=== PATIENT | female | born 1955 | race Caucasian/White ===

== ENCOUNTER 2018-04-04 20:56 | Emergency (ER) | payer BC, SELFPAY ==
[2018-04-04 20:59] VITALS: BP 185/84; PULSE 88; RESP 20; TEMP 36.6; O2SAT 96; BMI 37.4
--- NOTE | 2018-04-04 21:14 | PC.NURSE ---
Assisted BEN Piña with rectal exam. Large external hemorrhoid noted with swelling and redness.
--- NOTE | 2018-04-04 21:30 | ED_ITS ---
HPI - Skin/Abscess/Foreign Bdy <ILDA Loaiza - Last Filed: 04/04/18 21:33> General Chief complaint: Skin/Abscess/Foreign Body Stated complaint: RECTAL ABCESS Time Seen by Provider: 04/04/18 20:57 Source: patient Mode of arrival: ambulatory Limitations: no limitations History of Present Illness HPI narrative: 62-year-old female with history of type 2 diabetes nonsmoker here for complaint of having pain into her anal area for the past couple of weeks. She states she has had constipation on and off over the past couple weeks. Her doctor has seen her for the same thing and has had her try to increase fiber in her diet to see if it helps her symptoms. She reports increased pain with palpation to the area. She denies any trauma to the area. She denies any bleeding. No other concerns or complaints. Related Data Previous Rx's Medication Instructions Recorded benzocaine See Label Instructions .ROUTE 04/04/18 .COMPLEX PRN #30 gram polyethylene glycol 3350 [Miralax] 17 gram PO DAILY #14 each 04/04/18 Review of Systems <ILDA Loiaza - Last Filed: 04/04/18 21:33> Constitutional Denies chills, Denies fever(s), Denies lethargy and Denies weakness Eyes Denies change in vision, Denies eye discharge, Denies irritation and Denies loss of vision ENT Ears, Nose, Mouth, and Throat: Denies change in voice, Denies neck pain and Denies sore throat Cardiovascular Denies chest pain, Denies irregular heart rhythm, Denies lightheadedness, Denies palpitations, Denies dyspnea, Denies dyspnea on exertion and Denies orthopnea Respiratory Denies cough, Denies dyspnea, Denies dyspnea on exertion and Denies wheezing Gastrointestinal Gastrointestinal: Denies abdominal pain, Denies change in bowel habits, Denies diarrhea, Denies nausea and Denies vomiting Genitourinary Comments: Anal discomfort Musculoskeletal Denies neck pain Integumentary/Breasts Denies pruritus, Denies erythema, Denies rash and Denies wounds Neurologic Denies confusion, Denies loss of vision and Denies weakness Psychiatric Denies anxiety, Denies confusion, Denies depression, Denies homicidal ideation and Denies suicidal ideation Endocrine Denies palpitations Allergic/Immunologic Denies wheezing Exam <ILDA Loaiza - Last Filed: 04/04/18 21:33> Initial Vital Signs Initial Vital Signs: Vital Signs Temperature 97.9 F 04/04/18 20:59 Pulse Rate 88 04/04/18 20:59 Respiratory Rate 20 04/04/18 20:59 Blood Pressure 185/84 H 04/04/18 20:59 Pulse Oximetry 96 04/04/18 20:59 Const General: cooperative and well developed Nutritional Appearance: well nourished Orientation: alert, awake, oriented x3 and not confused HENMT Mouth: oral mucosae normal, oropharynx normal and moist mucous membranes Eyes Conjunctivae: conjunctivae normal Sclera: sclerae normal Pupils: PERRL EOM: EOM intact bilaterally Resp Effort & Inspection: normal respiratory effort, able to speak in complete sentences, no respiratory distress and no use of accessory muscles Auscultation: clear to auscultation bilaterally, no rales, no rhonchi and no wheezes Cardio Rate: regular rate Rhythm: regular rhythm Heart Sounds: no click, no gallops, no murmurs and no rubs GI Inspection: non-distended Palpation: soft, no hepatosplenomegaly, No guarding, No pulsatile mass and No tender Auscultation: normal bowel sounds Rectal Exam: normal sphincter tone and hemorrhoids (External hemorrhoid to 6:00 position non thrombosed) Skin General: no rashes or lesions noted, No jaundice and No petechiae Neuro General: alert, oriented x3, gait normal and no focal motor deficits Speech: speech normal <Az Garcia MD - Last Filed: 04/04/18 22:23> Initial Vital Signs Initial Vital Signs: Vital Signs Temperature 97.9 F 04/04/18 20:59 Pulse Rate 88 04/04/18 20:59 Respiratory Rate 20 04/04/18 20:59 Blood Pressure 185/84 H 04/04/18 20:59 Pulse Oximetry 96 04/04/18 20:59 Course <ILDA Loaiza - Last Filed: 04/04/18 21:33> Vital Signs - 8 hr 04/04/18 20:59 04/04/18 21:31 Temperature 97.9 F Pulse Rate 88 81 Respiratory Rate 20 18 Blood Pressure 185/84 H Blood Pressure [Right Arm] 135/84 Pulse Oximetry 96 100 <Az Garcia MD - Last Filed: 04/04/18 22:23> Vital Signs - 8 hr 04/04/18 20:59 04/04/18 21:31 Temperature 97.9 F Pulse Rate 88 81 Respiratory Rate 20 18 Blood Pressure 185/84 H Blood Pressure [Right Arm] 135/84 Pulse Oximetry 96 100 MDM - Skin/Abscess/Foreign Bdy <Wang LunaILDA - Last Filed: 04/04/18 21:33> [facility] Narrative Medical decision making narrative: She has an external hemorrhoid that is causing her discomfort. No abscess is appreciated. She is prescribed benzocaine ointment to help with discomfort. She is instructed to use beaudreauxs butt paste to help with estringment and protective properties. Sitz bath to help with symptoms as well. She is prescribed MiraLax to help see if it softens her stools. Plenty of fluids. Follow up with primary care provider in the next week. For any the worsening symptoms return to the emergency room. Discharge Plan Departure Patient Disposition: Home Clinical Impression: Hemorrhoid Discharge Date/Time: 04/04/18 21:38 Interventions: ED Discharge Assessment Last Done: 04/04/18 21:38 Instructions: DI for Hemorrhoids Activity Restrictions/Additional Instructions: Signs and symptoms presents as an external hemorrhoid that is causing the discomfort. You have been prescribed MiraLax to help soften her stools use as directed. Plenty of fluids. Sitz bath to help with symptoms a few times a day over the next several days. You have been prescribed benzocaine ointment to help with discomfort use as directed. Also use beaudreaux's butt paste over-the -counter zinc oxide for a astringent and protective properties as directed under instructed. Gmiv-qto-reddlpt Tylenol or Motrin as needed for any discomfort. Follow up with her primary care provider this week. Return emergency room for any worsening symptoms. Prescriptions: New benzocaine 10 % ointment See Label Instructions .ROUTE .COMPLEX PRN (Reason: hemorrhoids) Qty: 30 RF : 0 polyethylene glycol 3350 [Miralax] 17 gram powder in packet 17 gram PO DAILY Qty: 14 RF: 0 Referrals: Az Eastman MD [Primary Care Provider] -
[2018-04-04 21:31] VITALS: BP 135/84; PULSE 81; RESP 18; O2SAT 100
== END 2018-04-04 21:38 | disposition home or self-care (01) ==
PROVIDERS: Emergency Provider Nurse Practitioner Family; Family Provider Family Medicine; PCP Family Medicine
DX: K64.9 Unspecified hemorrhoids (principal)
CPT/HCPCS: 99282

== ENCOUNTER → 2018-12-24 13:43 | Outpatient (CLI) | payer BC, SELFPAY | PROVIDERS: PCP Family Medicine; Visit Provider Family Medicine | DX: R20.2 Paresthesia of skin (principal) | CPT/HCPCS: 95885; 95886; 95911 ==

== ENCOUNTER → 2020-05-01 16:28 | Outpatient (CLI) | payer BC, SELFPAY ==
--- NOTE | 2020-05-01 | DI.RAD.S_ITS ---
PROCEDURE: XR CHEST 2V INDICATIONS: PRURITIS TECHNIQUE: 2 views of the chest were acquired. COMPARISON: None. FINDINGS: Surgical changes and devices: Right upper quadrant cholecystectomy clips are present. Lungs and pleura: Lungs are clear. No pleural effusions or pneumothorax. Mediastinum: Mediastinal contours are normal. Heart size is normal. Bones and chest wall: No suspicious bony abnormalities. Soft tissues appear unremarkable. IMPRESSION: No acute cardiopulmonary abnormality. Dictated by: Dorian Capps M.D. on 05/01/2020 at 17:03 Approved by: Dorian Capps M.D. on 05/01/2020 at 17:15
== END ==
PROVIDERS: PCP Family Medicine; Referring Provider Family Medicine; Visit Provider Family Medicine
DX: L29.9 Pruritus, unspecified (principal)
CPT/HCPCS: 71046

== ENCOUNTER → 2021-07-07 08:12 | Outpatient (CLI) | payer BC, SELFPAY ==
--- NOTE | 2021-07-07 | DI.MG.S_ITS ---
BILATERAL DIGITAL SCREENING MAMMOGRAM 3D/2D WITH CAD: 07/07/2021 CLINICAL: Routine screening. Family history of breast cancer. Comparison is made to exams dated: 05/21/2013 mammogram, 09/18/2016 mammogram, 09/26/2016 mammogram, and 01/03/2012 mammogram - outside facility. The tissue of both breasts is predominantly fatty. Current study was also evaluated with a Computer Aided Detection (CAD) system. No significant masses, calcifications, or other findings are seen in either breast. There has been no significant interval change. IMPRESSION: NEGATIVE There is no mammographic evidence of malignancy. A 1 year screening mammogram is recommended. This exam was interpreted at Station ID: [id number]. NOTE: For mammograms, a report in lay terms will be sent to the patient. Approximately 15% of breast malignancies will not be visualized mammographically. In the management of a palpable breast mass, a negative mammogram must not discourage biopsy of a clinically suspicious lesion. Electronically Signed By: Rodrigo fox/wilbur:07/09/2021 07:31:12 letter sent: Normal Exam ACR BI-RADS Category 1: Negative 3341F
== END ==
PROVIDERS: PCP Family Medicine; Referring Provider Family Medicine; Visit Provider Family Medicine
DX: Z12.31 Encounter for screening mammogram for malignant neoplasm of breast (principal); Z80.3 Family history of malignant neoplasm of breast
CPT/HCPCS: 77063; 77067

== ENCOUNTER → 2021-07-31 13:58 | Outpatient (CLI) | payer BC, SELFPAY ==
--- NOTE | 2021-07-31 16:58 | DIAB.MNT ---
Initial Diabetes Medical Nutrition Therapy Assessment Name: Mable Alberts Date: 07/31/21 Time: 2-330p Dx: Type II Diabetes Provider: Carolyn Eastman Preferred Learning Style: Listening, watching Mable presents for initial visit concerning her DM and weight. States she has had DM for 10 years. Reports recent hgA1c from Endo of 8%, lower than previous labs of 9.6% in 11/2019 per referral. Mable endorses medication rxns with Metformin and Januvia. States Endo plans to try a new medication next visit (end of Jul), but she is unclear which med. Mable reports a number of food allergies. Saw an associate professor of engineering and completed bloodwork indicating some elevated IgE levels for avocado, corn, latex, wheat, and eggs. Never had f/u appt. States she went to associate professor of [employer] due to a severe rash that would not heal. Rash has since healed, prior to cutting these foods out of her diet. Despite this, she has decided to avoid corn and wheat. Other foods she avoids: chicken, beef due to preference and soy due to allergy. Also endorses arthritis and is avoiding wheat and considering nightshade veggie restriction. Mable has h/o thyroid insufficiencies, arthritis, hair loss, and rashes. Wondering if she is having multiple autoimmune issues. Diet recall indicates very small portions for meals. States she is looking for easy meal ideas. She works long hours as an RN. Temporarily living in a small living space with limited cooking space and capabilities. States she is open to meal prep ideas but historically does not cook. reports high sat fat and sodium convenience foods. Diet Recall: 5a: black coffee 8-9a: yogurt with nuts or HB egg or one toast with butter or PB 12-2p: cheese and crackers or chopped salad or veggie mix with nuts and black beans or frozen egg white bites 6-7p: nuts, cheese, part of apple or polenta with pesto and tomatoes with cheese. Beverages: 80oz water, 12oz sparkling water, 1-2c coffee Anthropometrics: Ht: 68 Wt: 240# reported Weight history: reports recent -10# intentional weight loss Physical Activity: walks 4 days per week with dogs for 60 min. Recently started online yoga. PT for back once per week. Self-Monitoring Blood Glucose: Has checked in the past. Not currently checking. States her fastings were usually in range but some after meal readings in the low 200s. Diabetes Medications: Glipizide 10 mg daily Pertinent Labs: 8% HgA1c reported. Per referral: HgA1c 9.6 (11/2019). Referral indicates h/o HLD in 2019. Past Medical History: (Reported) Eye problems, carpal tunnel sx, excision of melanoma, cholecystectomy, drug and food allergies Nutrition Rx: Carbohydrates: Meal: 30g Snack: 15-30g Nutrition Diagnosis: - Excessive saturated fat intake r/t convenience food options and nutrition related knowledge deficit aeb diet recall - Self monitoring deficit r/t not currently checking SMBG aeb pt report - Nutrition and food related knowledge deficit r/t limited MNT hx aeb pt report Intervention: This participant was very receptive. Provided appropriate educational handouts. Discussed the following topics: Completed intake assessment. Discussed barriers to care. HgA1c, its correlation to blood glucose numbers, and rationale for goal Importance of self-monitoring, how often, and when to check. Suggested checking at different times to evaluate meals Keeping more varied diet possible with food allergies and preferences Plate Method, impact of macronutrients on blood sugar, meal timing, carbohydrate counting, pairing macronutrients Recommended servings for carbohydrates at meals and snacks Heart health nutrition: sat fat and sodium Brainstormed appropriate meal ideas plan based on food preferences Role of physical activity and following guidelines for safety Created SMART goals for patient self-care and success. Goals: bring list of foods from home for more ideas on meal planning Read food labels Start checking Bg 1-2 x per day and log Follow-up: ARCELIA MARTIN follow-up in 2-3 weeks Riana Cano RDN, RAYES Certified Diabetes Care and Division Director P: [phone] Thank you for this referral
== END ==
PROVIDERS: PCP Family Medicine; Referring Provider Family Medicine; Visit Provider Family Medicine
DX: E11.9 Type 2 diabetes mellitus without complications (principal); Z79.84 Long term (current) use of oral hypoglycemic drugs
CPT/HCPCS: 97802

== ENCOUNTER → 2021-09-11 12:57 | Outpatient (CLI) | payer BC, SELFPAY ==
--- NOTE | 2021-09-11 17:43 | DIAB.MNTFU ---
Follow-up Diabetes Medical Nutrition Therapy Assessment Name: Mable Alberts Date: 09/11/21 Time: 110-215p Dx: Type II Diabetes Mable presents for follow-up regarding T2DM. States she has seen her endo last month and her HgA1c was the highest it has ever been at 11%. States she started Jaridiance at 10mg with the impression that her endo would increase dose. This endo has retired. She is unclear if the new endo will titrate her dose up without a visit. Encouraged her to call provider's office to determine plan. Also endorses elevated lipids. FH of HLD with mother and sister. Plans to start statin. Reports trying to make lower carb choices; however even on low carb days she is waking with elevated fastings. Seems she may need more medication coverage, certainly an increase in Jardiance may be beneficial. Certainly increases in physical activity would be beneficial as well. Reports she would like info on what kind of bread to choose. Also interested on easy on hand items to keep that are low in carb. States she does not think she gets much protein, which is evident in her diet recall. Limits chicken and beef as a preference. Does eat fish. States she has an allergy to soy. Would like a list of potential meals and snack ideas. Anthropometrics: Ht: 68 Wt: 240# reported last visit Physical Activity: last visit: walks 4 days per week with dogs for 60 min. Recently started online yoga. PT for back once per week. Self-Monitoring Blood Glucose: All FBG above target. Two other readings also elevated per ADA guidelines. Date Pre Post Pre Post Pre Post HS 08/22 164 08/24 153 08/26 181 189 184 09/03 233 09/08 235 09/09 172 09/10 177 Diabetes Medications: Glipizide 10 mg daily Jardiance 10mg Pertinent Labs: 8% HgA1c reported. Per referral: HgA1c 9.6 (11/2019). Referral indicates h/o HLD in 2019. Past Medical History: (Reported) Eye problems, carpal tunnel sx, excision of melanoma, cholecystectomy, drug and food allergies Nutrition Rx: Carbohydrates: Meal: 30g Snack: 15-30g Nutrition Diagnosis: - Excessive saturated fat intake r/t convenience food options and nutrition related knowledge deficit aeb diet recall- improved - Self monitoring deficit r/t not currently checking SMBG aeb pt report- improved - Nutrition and food related knowledge deficit r/t limited MNT hx aeb pt report- in progress Intervention: This participant was very receptive. Provided appropriate educational handouts. Discussed the following topics: Blood sugar review and trends. Impact of food intake on results. Label reading, meal planning and lists Protein options Heart health nutrition: fats, fiber, and sodium Fiber needs with lower carb diets Eating out and grocery shopping tips Medication action and doses Created SMART goals for patient self-care and success. 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
== END ==
PROVIDERS: PCP Family Medicine; Referring Provider Family Medicine; Visit Provider Family Medicine
DX: E11.9 Type 2 diabetes mellitus without complications (principal); E78.5 Hyperlipidemia, unspecified; Z71.3 Dietary counseling and surveillance; Z79.84 Long term (current) use of oral hypoglycemic drugs
CPT/HCPCS: 97803

== ENCOUNTER → 2021-11-01 10:07 | Outpatient (CLI) | payer BC, SELFPAY ==
[2021-11-01 11:16] LABS: COVID19 -Nasal RAPID Negative (Negative)
== END ==
PROVIDERS: PCP Family Medicine; Visit Provider Family Medicine Sleep Medicine
DX: Z20.822 Contact with and (suspected) exposure to COVID-19 (principal)
CPT/HCPCS: 87635

== ENCOUNTER → 2021-11-01 12:08 | Outpatient (CLI) | payer BC, SELFPAY ==
--- NOTE | 2021-11-02 12:03 | PM.TREADMILL ---
Cardiac Stress Test Report Referral & Results Date Patient Seen: 11/02/21 Time Patient Seen: 12:03 Requesting provider: Az Eastman Indication: Chest pain Rest ECG: Sinus rhythm Procedure Note: Standard Pastor protocol, 5:31, 7.0 METS Reduced exercise capacity, LORENZO +13% Normal hemodynamic response to exercise No chest pain or anginal symptoms No significant ST changes at peak exercise Rare PVC Impression: Normal exercise stress test Please note: Actual ECG tracings can be found in the PACS system.
--- NOTE | 2021-11-02 18:03 | DI.NM.S_ITS ---
DATE OF SERVICE: 11/01/2021 PROCEDURE PERFORMED: Exercise treadmill stress and rest myocardial perfusion imaging with gating to assess ejection fraction and regional wall motion. ORDERING PROVIDER: Dr. Az Eastman. INDICATIONS: The patient is a 65-year-old obese female with atypical chest discomfort. EXERCISE TREADMILL TESTING: The patient was able to exercise for 5 minutes, 32 seconds on a standard Pastor protocol suggesting mild to moderately reduced exercise capacity with an LORENZO of +13%, achieving 7.0 METs. She had a normal heart rate and blood pressure response to exercise, achieving a maximum heart rate of 156 BPM (100% of her predicted maximum). Her resting ECG shows sinus rhythm with normal ST segments. There are no significant ST-segment shifts or arrhythmias with exercise although she had occasional isolated PVCs early in recovery that quickly resolved. She had no chest discomfort or other anginal symptoms. At 4 minutes, 48 seconds of exercise at a heart rate of 133 BPM, 26.4 millicuries of technetium-99m Myoview was injected and she was imaged 20 minutes later using a gated SPECT acquisition protocol. The day prior she had been injected with 25.0 millicuries of technetium-99m Myoview while at rest and was imaged 25 minutes later, again using a gated SPECT acquisition protocol. FINDINGS: 1. Raw data: There is fair myocardial tracer uptake with prominent breast shadows that clearly produce some attenuation artifact. The lung/heart ratio was normal at 0.36 with a normal TID ratio of 1.02. 2. Quantitated gated SPECT: Post-stress ejection fraction is estimated at 72% without any focal wall motion abnormality and specifically the anterior wall has normal contractility. Resting ejection fraction is 71% with an end-diastolic volume of 91 mL. 3. Myocardial perfusion imaging: Post-stress supine images shows a mild perfusion defect in the mid and distal anterior wall in a pattern that consistent with breast attenuation artifact, supported by its complete resolution on prone imaging, revealing a normal homogeneous perfusion pattern. The resting images show an identical perfusion pattern without any areas of improvement. IMPRESSION: 1. Normal myocardial perfusion study. 2. Mild fixed anterior defect that completely resolves on prone imaging, consistent with breast attenuation artifact. There is no compelling evidence for myocardial ischemia or previous myocardial infarction. 3. Normal left ventricular size and function with an estimated ejection fraction of 72% without any focal wall motion abnormality. 4. Mild to moderately reduced exercise capacity with no angina or ECG changes of ischemia. She had occasional isolated PVCs in early recovery but no other arrhythmias. Mable Alberts - FRAN/uriel/galo doc#: [id number]/job#: [id number] dd: 11/02/2021 17:03:00 dt: 11/02/2021 17:48:00 DICTATING /COPIES TO: Az Guzmán MD; Az Eastman MD COPIES MNE: NAIN;
== END ==
PROVIDERS: PCP Family Medicine; Referring Provider Family Medicine; Visit Provider Family Medicine
DX: R07.89 Other chest pain (principal); E11.9 Type 2 diabetes mellitus without complications; Z20.822 Contact with and (suspected) exposure to COVID-19
CPT/HCPCS: 78452; 87635; 93017; C9803; A9502

== ENCOUNTER → 2022-09-16 15:15 | Outpatient (CLI) | payer BC, SELFPAY ==
--- NOTE | 2022-09-16 | DI.RAD.S_ITS ---
PROCEDURE: XR RIBS RT 2V INDICATIONS: RIGHT RIB PAIN TECHNIQUE: Two views of the right ribs were acquired. COMPARISON: None. FINDINGS: Surgical changes and devices: Right upper quadrant cholecystectomy clips. Bones and chest wall: No acute displaced rib fracture, although or inferior ribs are suboptimally visualized due to patient body habitus No suspicious bony lesions. Overlying soft tissues appear unremarkable. Lungs and pleura: The visualized lung appears clear. No pleural effusions or pneumothorax are visible. IMPRESSION: No acute displaced rib fracture is seen radiographically. No pleural effusion or pneumothorax. Approved by: Dorian Capps M.D. on 09/16/2022 at 16:17
== END ==
PROVIDERS: PCP Family Medicine; Referring Provider Family Medicine; Visit Provider Family Medicine
DX: R07.81 Pleurodynia (principal)
CPT/HCPCS: 71100

== ENCOUNTER → 2025-05-10 08:13 | Outpatient (CLI) | payer OTHER, SELFPAY ==
--- NOTE | 2025-05-10 08:18 | DI.US.S_ITS ---
PROCEDURE: US ABD AORTA ANEURYSM SCREEN INDICATIONS: SCREEN TECHNIQUE: Real time scanning was performed of the aorta and iliac arteries, with image documentation. COMPARISON: None. FINDINGS: Aorta: Proximal aortic diameter measures 2.2 cm. Mid-aorta measures 1.9 cm. Distal aortic diameter is 1.7 cm. Atheromatous plaques are noted. Iliac arteries: Right common iliac artery measures 1.2 cm. Left common iliac artery measures 1.3 cm. IMPRESSION: No abdominal aortic aneurysm. Normal caliber iliac arteries. Dictated by: Jennifer Sparks M.D. on 05/10/2025 at 9:17 Approved by: Jennifer Sparks M.D. on 05/10/2025 at 9:17
--- NOTE | 2025-05-10 08:18 | DI.MG.S_ITS ---
MM screening mammo BI: 05/10/2025. BI-RADS: 0 CLINICAL: 69-year old female for bilateral screening mammogram. Tyrer-Cuzick lifetime risk of 7.0%. No personal or first-degree family history of breast cancer. Current reported family history of breast cancer: paternal aunt's daughter. The patient had a prior left breast biopsy. PRIOR EXAMS 07/07/2021, 09/26/2016, 09/18/2016. MAMMOGRAPHY TECHNIQUE: 2D and 3D (tomosynthesis) digital mammographic views obtained, with additional images as needed for full coverage. Current study was also evaluated with a Computer Aided Detection (CAD) system. DENSITY B. There are scattered areas of fibroglandular density. MAMMOGRAPHY FINDINGS Right: No suspicious mass, asymmetry, microcalcification, or other abnormality seen. Left: CC only, Central, Anterior depth: Asymmetry needing additional imaging evaluation. Left: Biopsy marker present on the left. IMPRESSION: Right * No evidence of malignancy. Left (Asymmetry): CC only, Central, Anterior depth * Incomplete - asymmetry needing additional imaging evaluation. RECOMMENDATIONS Left: CC only, Central, Anterior depth * Further evaluation with diagnostic mammography and diagnostic ultrasound. Ultrasound to be performed only if needed. OVERALL ASSESSMENT CATEGORY BI-RADS-0: Incomplete - Need Additional Imaging Evaluation. ELECTRONICALLY SIGNED: Zoe Sands M.D. on 05/10/2025 at 11:16:15 PM PT Interpreting Station ID: [id number]
== END ==
PROVIDERS: PCP Family Medicine; Referring Provider Family Medicine; Visit Provider Family Medicine
DX: Z12.31 Encounter for screening mammogram for malignant neoplasm of breast (principal); R92.323 Mammographic fibroglandular density, bilateral breasts; Z80.3 Family history of malignant neoplasm of breast; H40.1430 Capsular glaucoma with pseudoexfoliation of lens, bilateral, stage unspecified
CPT/HCPCS: 76706; 77063; 77067

== ENCOUNTER → 2025-05-31 10:18 | Outpatient (CLI) | payer OTHER, SELFPAY ==
--- NOTE | 2025-05-31 10:19 | DI.MG.S_ITS ---
MM diagnostic mammo unilat LT: 05/31/2025. BI-RADS: 2
== END ==
LOC: MAMMO 10:18
PROVIDERS: PCP Family Medicine; Referring Provider Family Medicine; Visit Provider Family Medicine
DX: R92.8 Other abnormal and inconclusive findings on diagnostic imaging of breast (principal); R92.322 Mammographic fibroglandular density, left breast; Z80.3 Family history of malignant neoplasm of breast
CPT/HCPCS: 77065; G0279